=== PATIENT | male | born 1940 | race Caucasian/White ===

== ENCOUNTER 2022-06-07 08:47 | Emergency (ER) | payer OTHER ==
[~2022-06-07] VITALS: Ht 180.3 cm; Wt 99.8 kg
[2022-06-07 08:50] VITALS: BP_SYST 122
--- NOTE | 2022-06-07 09:05 | NUR ---
RECEIVED PT FROM RAFFY WILL. PT BIB DAUGHTER FOR C/O OF ABDOMINAL PAIN 12/20 BUT WHEN HE MOVES IT INCREASES TO 04/22. PT WAS SEEN YESTERDAY AT URGENT CARE AND WAS TOLD HE HAS MUSCULAR PAIN. PT IS AAXO4. ON R/A. ABDOMEN SOFT, TENDER, NONDISTENDED. PT DENIES N/V/D/C. SKIN INTACT, PERIPHERAL PULSES NORMAL, NO EDEMA. SIDERAILS UP X2.
--- NOTE | 2022-06-07 09:09 | NUR ---
DR. HINTON AT BEDSIDE TO ASSESS PT.
--- NOTE | 2022-06-07 09:30 | NUR ---
EKG COMPLETED AND GIVEN TO DR. HINTON. LABS OBTAINED. # 20 gauge angiocath placed to LAC. Use of asceptic technique. Opsite placed over site. Blood return noted. Blood for lab drawn from site. Flushed with 10 cc of normal saline. No evidence of infiltration noted. Patient tolerated well.
[2022-06-07 09:44] LABS: ANION GAP 8 (5-15); CALCIUM 8.8 mg/dL (8.4-11.0); CREATININE 1.25 mg/dL (0.55-1.30); GLUCOSE 245 mg/dL (70-99); POTASSIUM 3.8 mmol/L (3.5-5.1); UREA NITROGEN, BLOOD 20 mg/dL (8-21)
--- NOTE | 2022-06-07 09:44 | NUR ---
PT C/T SCAB COMPLETED.
[2022-06-07 09:48] LABS: BASOPHILS % (AUTO) 0.2 % (0.0-2.0); CHLORIDE 120 mmol/L (98-107); EOSINOPHILS # (AUTO) 0.1 K/uL (0.0-0.4); EOSINOPHILS % (AUTO) 2.2 % (0.0-4.0); HEMATOCRIT 40.8 % (36-54); HEMOGLOBIN 14.4 g/dL (14.0-18.0); LYMPHOCYTES % (AUTO) 27.8 % (20.5-51.5); MEAN CORPUSCULAR HEMOGLOBIN 34 pg (27-31); MEAN CORPUSCULAR HGB CONC 35 % (32-36); MEAN CORPUSCULAR VOLUME 95 fL (79.0-98.0); MONOCYTES # (AUTO) 0.2 K/uL (0.0-1.0); MONOCYTES % (AUTO) 5.3 % (1.7-9.3); NEUTROPHILS # (AUTO) 2.4 K/uL (1.8-7.7); NEUTROPHILS % (AUTO) 64.5 % (40.0-70.0); PLATELET COUNT (AUTO) 127 K/uL (130-430); RED BLOOD CELL COUNT(AUTO) 4.29 MIL/uL (4.2-6.2); RED CELL DISTRIBUTION WIDTH 12.9 % (9.0-15.0); WHITE BLOOD COUNT (AUTO) 3.7 K/uL (4.8-10.8)
--- NOTE | 2022-06-07 09:51 | NUR ---
CRITICAL LAB RECEIVED AND REPORTED TO DR. HINTON, CHLORIDE 120. NNOS.
[2022-06-07 09:53] LABS: ALANINE AMINOTRANSFERASE 27 U/L (12-78); ALBUMIN 3.5 g/dL (3.4-4.8); ASPARTATE AMINOTRANSFERASE 20 U/L (10-37); TOTAL BILIRUBIN 0.5 mg/dL (0.0-1.0)
[2022-06-07 10:08] LABS: BILIRUBIN,URINE NEGATIVE (NEGATIVE); BLOOD, URINE 2+ (NEGATIVE); COLOR,URINE YELLOW (YELLOW); GLUCOSE,URINE NEGATIVE (NEGATIVE); KETONES,URINE NEGATIVE (NEGATIVE); LEUKOCYTE ESTERASE ,URINE NEGATIVE (NEGATIVE); NITRITE, URINE NEGATIVE (NEGATIVE); PH,URINE 5.5 (5.0-8.0); PROTEIN URINE NEGATIVE (NEGATIVE); UROBILINOGEN,URINE 0.2 (0.2-1.0)
--- NOTE | 2022-06-07 10:10 | NUR ---
DR. HINTON AT BEDSIDE TO DISCUSS POC.
[2022-06-07 10:12] LABS: CLARITY/URINE CLOUDY (CLEAR)
[2022-06-07 10:22] VITALS: BP_SYST 126
[2022-06-07 10:25] LABS: ANION GAP 8 (5-15); CALCIUM 8.2 mg/dL (8.4-11.0); CHLORIDE 104 mmol/L (98-107); CREATININE 1.34 mg/dL (0.55-1.30); GLUCOSE 200 mg/dL (70-99); POTASSIUM 3.8 mmol/L (3.5-5.1); UREA NITROGEN, BLOOD 19 mg/dL (8-21)
--- NOTE | 2022-06-07 10:25 | NUR ---
Patient given written and verbal discharge instructions and verbalizes understanding. ER MD discussed with patient the results and treatment provided. Patient in stable condition. ID arm band removed. IV catheter removed intact and dressing applied, no active bleeding. Patient educated on pain management and to follow up with PMD. Pain Scale 3/10. Opportunity for questions provided and answered. Medication side effect fact sheet provided.
[2022-06-07 10:30] LABS: ALANINE AMINOTRANSFERASE 29 U/L (12-78); ALBUMIN 3.5 g/dL (3.4-4.8); ASPARTATE AMINOTRANSFERASE 19 U/L (10-37); TOTAL BILIRUBIN 0.6 mg/dL (0.0-1.0)
[2022-06-07 10:34] LABS: BACTERIA,URINE FEW /HPF (None Seen); WBC,URINE NONE SEEN /HPF (0-3)
== END 2022-06-07 10:25 | disposition home or self-care (01) ==
LOC: SED 08:47
DX: K44.9 Diaphragmatic hernia without obstruction or gangrene (principal); R10.12 Left upper quadrant pain; R06.02 Shortness of breath; Z79.899 Other long term (current) drug therapy
CPT/HCPCS: 36415; 71045; 76376; 80053; 81000; 84484; 85025; 87086; 99285

== ENCOUNTER 2022-06-09 09:16 | Emergency (ER) | payer OTHER ==
[~2022-06-09] VITALS: Ht 180.3 cm; Wt 100.7 kg
--- NOTE | 2022-06-09 09:22 | NUR ---
Pt placed in ER bed 1. Report given to me by charge nurse RAFFY Callejas. Pt placed on monitor at this time.
[2022-06-09 09:23] VITALS: BP_SYST 140
--- NOTE | 2022-06-09 10:01 | NUR ---
ER MD AT BEDSIDE FOR EXAM, DR MOORE
[2022-06-09 10:26] LABS: BASOPHILS % (AUTO) 0.2 % (0.0-2.0); HEMATOCRIT 40.7 % (36-54); HEMOGLOBIN 14.5 g/dL (14.0-18.0); LYMPHOCYTES # (AUTO) 0.5 K/uL (1.0-5.5); LYMPHOCYTES % (AUTO) 13.2 % (20.5-51.5); MEAN CORPUSCULAR HEMOGLOBIN 34 pg (27-31); MEAN CORPUSCULAR HGB CONC 36 % (32-36); MEAN CORPUSCULAR VOLUME 95 fL (79.0-98.0); MONOCYTES # (AUTO) 0.2 K/uL (0.0-1.0); MONOCYTES % (AUTO) 5.8 % (1.7-9.3); NEUTROPHILS # (AUTO) 3.2 K/uL (1.8-7.7); NEUTROPHILS % (AUTO) 79.8 % (40.0-70.0); PLATELET COUNT (AUTO) 123 K/uL (130-430); RED BLOOD CELL COUNT(AUTO) 4.31 MIL/uL (4.2-6.2); RED CELL DISTRIBUTION WIDTH 13.1 % (9.0-15.0)
[2022-06-09 10:33] LABS: ANION GAP 7 (5-15); CALCIUM 8.5 mg/dL (8.4-11.0); CHLORIDE 103 mmol/L (98-107); CREATININE 1.34 mg/dL (0.55-1.30); GLUCOSE 263 mg/dL (70-99); POTASSIUM 3.9 mmol/L (3.5-5.1); UREA NITROGEN, BLOOD 18 mg/dL (8-21)
[2022-06-09 10:39] LABS: ALANINE AMINOTRANSFERASE 24 U/L (12-78); ALBUMIN 3.6 g/dL (3.4-4.8); ASPARTATE AMINOTRANSFERASE 19 U/L (10-37); LIPASE 50 U/L (73-393); TOTAL BILIRUBIN 0.5 mg/dL (0.0-1.0)
--- NOTE | 2022-06-09 11:01 | NUR ---
Patient will be admitted to care of ICU. Admitted to unit. Will go to room . Belongings list completed. Complete and up to date summary report printed. SBAR report to be given at bedside with opportunity for questions.
[2022-06-09] MEDS ORDERED: SIME80TA15 PO (12:03)
[2022-06-09 12:10] VITALS: BP_SYST 125
--- NOTE | 2022-06-09 12:25 | NUR ---
Patient given written and verbal discharge instructions and verbalizes understanding. ER MD discussed with patient the results and treatment provided. Patient in stable condition. ID arm band removed. IV catheter removed intact and dressing applied, no active bleeding. Rx of Simethicone given. Patient educated on pain management and to follow up with PMD. Opportunity for questions provided and answered.
== END 2022-06-09 12:25 | disposition home or self-care (01) ==
LOC: SED 09:16
DX: K44.9 Diaphragmatic hernia without obstruction or gangrene (principal); R10.13 Epigastric pain; R07.9 Chest pain, unspecified; Z79.899 Other long term (current) drug therapy
CPT/HCPCS: 99285; 71045; 80053; 83690; 85025; 36415; 93005; J7030